=== PATIENT | female | born 2000 | race Caucasian/White ===

== ENCOUNTER → 2019-02-17 13:20 | Outpatient (CLI) | payer BC, SELFPAY ==
[2019-02-17 09:27] VITALS: BMI 29.7
[2019-02-17 17:18] LABS: Chlamydia Trachomatis by PCR POSITIVE (Negative); Neisserai gonorrhoeae by PCR Negative (Negative); Probe Check PASS
== END ==
PROVIDERS: Referring Provider Nurse Practitioner Women's Health; Visit Provider Nurse Practitioner Women's Health
DX: R10.2 Pelvic and perineal pain (principal)
CPT/HCPCS: 87491; 87591

== ENCOUNTER → 2019-04-05 17:01 | Outpatient (CLI) | payer BC, SELFPAY ==
[2019-04-05 08:52] VITALS: BMI 29.7
[2019-04-05 19:44] LABS: Chlamydia Trachomatis by PCR Negative (Negative); Neisserai gonorrhoeae by PCR Negative (Negative); Probe Check PASS; Sample Adequacy Control PASS; Specimen Processing Control PASS
== END ==
PROVIDERS: Referring Provider Nurse Practitioner Women's Health; Visit Provider Nurse Practitioner Women's Health
DX: A74.9 Chlamydial infection, unspecified (principal)
CPT/HCPCS: 87491; 87591